=== PATIENT | male | born 1955 | race Caucasian/White ===

== ENCOUNTER 2023-11-15 10:41 | Day surgery (SDC) | payer MEDICARE, OTHER ==
[2023-11-13 13:18] VITALS: BMI 24.3
[2023-11-15] MEDS ORDERED: Bupivacaine 0.25% HCL 30 ML VIAL ONE (10:59)
[2023-11-15] MEDS ORDERED: Bacitracin Zinc Ointment 30 gm TUBE ONE (10:59)
[2023-11-15] MEDS ORDERED: EPINEPHrine 1 MG/ML VIAL ONE (10:59)
[2023-11-15] MEDS ORDERED: fentaNYL PF 100 MCG/2 ML SYRINGE ONE (11:39)
[2023-11-15] MEDS ORDERED: Heparin 5,000 UNITS/ML VIAL ONE (11:39)
[2023-11-15] MEDS ORDERED: PROPOFOL 20 ML ONE (11:39)
[2023-11-15 11:49] LABS: #Eosinphils 0.1 thou/uL (0.0-0.7); #Monocytes 0.5 thou/uL (0.11-0.59); #Neutrophils 4.4 thou/uL (1.40-6.50); %Basophils 0.3 % (0.0-1.0); %Eosinophils 1.3 % (0.0-10.0); %Lymphocytes 28.8 % (21.0-51.0); %Monocytes 7.5 % (0.0-10.0); %Neutrophils 61.5 % (42.0-75.0); Hematocrit 42.8 % (42.0-52.0); Hemoglobin 15.1 g/dL (14.0-18.0); Mean Corpuscular HGB CONC 35.3 g/dL (32.0-36.0); Mean Corpuscular Hemoglobin 35.2 pg (27.0-31.0); Mean Corpuscular Volume 99.8 fl (78.0-98.0); Platelet Count 185 10x3/uL (130-400); RBC Distribution Width 12.6 % (11.5-14.5); Red Blood Cell (RBC) Count 4.29 mill/uL (4.70-6.10); White Blood Cell (WBC) Count 7.2 10x3/uL (4.8-10.8)
[2023-11-15] MEDS ORDERED: Midazolam HCl 2 mg/2 ml Vial ONE (11:57)
[2023-11-15] MEDS ORDERED: CEFAZOLIN 2 GM VIAL ONE (11:59)
[2023-11-15] MEDS ORDERED: Sodium Chloride 0.9% 100 ML ONE (12:00)
[2023-11-15 12:09] LABS: Anion Gap 11 mmol/L (10-20); BUN (Urea Nitrogen) 14 mg/dL (8.4-25.7); Calc. Creatinine Clearance 78 mL/min (70-130); Calcium 9.4 mg/dL (7.8-10.44); Carbon Dioxide 27 mmol/L (23-31); Chloride 107 mmol/L (98-107); Estimated GFR 89; Glucose 107 mg/dL (80-115); Potassium 3.8 mmol/L (3.5-5.1); Sodium 141 mmol/L (136-145)
[2023-11-15] MEDS ORDERED: ePHEDrine Sulfate 50 MG/10 ML VIAL ONE (12:26)
[2023-11-15] MEDS ORDERED: Ondansetron PF 4 MG/2 ML Vial ONE (12:31)
[2023-11-15] MEDS ORDERED: Dexamethasone 4 mg/ml Vial ONE (12:31)
[2023-11-15] MEDS ORDERED: Mineral Oil Sterile 10 ML VIAL ONE (12:33)
[2023-11-15] MEDS ORDERED: fentaNYL 50 mcg/mL 1 mL Vial ONE ×2 (13:25→13:39)
[2023-11-15] MEDS ORDERED: HYDROcodone/Acetaminophen 5/325 mg Tablet ONE (14:11)
== END 2023-11-15 15:15 | disposition home or self-care (01) ==
LOC: SDC 10:41
PROVIDERS: ATTEND Plastic Surgery
PROC: 0HR Skin and Breast, Replacement (ICD-10-PCS; principal; 2023-11-15)
DX: D03.61 Melanoma in situ of right upper limb, including shoulder (principal)
CPT/HCPCS: 11626; 15100; 80048; 85025; 97139; J0171; J3010; 88305; 88341; 88342; J1100; J1644; J2250; J2405; J2704; J3490; S0020

== ENCOUNTER 2024-04-10 08:58 | Outpatient (CLI) | payer MEDICARE | END 2024-04-10 08:59 | disposition home or self-care (01) | LOC: SCSCT 08:58 | PROVIDERS: ATTEND Family Medicine Sports Medicine | DX: R91.8 Other nonspecific abnormal finding of lung field (principal) | CPT/HCPCS: 71250 ==